=== PATIENT | male | born 1980 | race Caucasian/White ===

== ENCOUNTER 2017-01-26 13:11 | Emergency (ER) | payer OTHER ==
[2017-01-26 13:24] VITALS: BP 118/78
--- NOTE | 2017-01-26 13:41 | UC ---
Lower Extremity/Ankle HPI - HPI Summary HPI Summary: pt presents with sudden onset of pain to right foot/ankle pain s/p inverting right ankle when stepping on toy at home. Pt reports prior history of right ankle injury - History of Current Complaint Chief Complaint: UCLowerExtremity Stated Complaint: RIGHT ANKLE INJURY Time Seen by Provider: 01/26/17 13:24 Hx Obtained From: Patient Onset/Duration: Sudden Onset, Lasting Minutes Severity Initially: Moderate Severity Currently: Moderate Aggravating Factor(s): Standing, Ambulation Alleviating Factor(s): Rest, Elevation Able to Bear Weight: No - Risk Factors Gout Risk Factors: Male - Allergies/Home Medications Allergies/Adverse Reactions: Allergies Allergy/AdvReac Type Severity Reaction Status Date / Time Amoxicillin Allergy Nausea Verified 01/26/17 13:24 Clarithromycin [From Biaxin] Allergy Nausea Verified 01/26/17 13:24 Penicillins Allergy Nausea Verified 01/26/17 13:24 Home Medications: Home Medications Multiple Vitamin [Multi Vitamin] 1 tab PO DAILY 01/26/17 [History Confirmed 07/03] Testosterone GEL (NF) [Androgel (NF)] 50 mg TOPICAL DAILY 01/26/17 [History Confirmed 01/26/17] Vitamin B Complex TAB* [Complex B-100*] 1 tab PO DAILY 01/26/17 [History Confirmed 01/26/17] PMH/Surg Hx/FS Hx/Imm Hx Previously Healthy: Yes - Surgical History Surgical History: Yes Surgery Procedure, Year, and Place: ACL left 1999, cartilage 2007, left hand 2012 - Family History Known Family History: Positive: Other - positive [facility] for myalgia - Social History Alcohol Use: Rare Substance Use Type: None, Prescribed Substance Use Comment - Amount & Last Used: recovering opiate addict Smoking Status (MU): Heavy Every Day Tobacco Smoker Type: Cigarettes, eCigarettes Amount Used/How Often: 1/2 ppd Review of Systems Constitutional: Negative Skin: Negative Eyes: Negative ENT: Negative Respiratory: Negative Cardiovascular: Negative Gastrointestinal: Negative Genitourinary: Negative Motor: Decreased ROM - right ankle/foot secondary to pain Neurovascular: Negative Musculoskeletal: Arthralgia, Decreased ROM - right foot/ankle, Myalgia Neurological: Negative Psychological: Negative All Other Systems Reviewed And Are Negative: Yes Physical Exam Triage Information Reviewed: Yes Appearance: Well-Appearing Vital Signs: Initial Vital Signs Temp 97.9 F 07/12/17 13:13 Pulse 88 01/26/17 13:13 Resp 16 01/26/17 13:13 BP 118/78 01/26/17 13:13 Pulse Ox 98 01/26/17 13:13 Eye Exam: Normal Respiratory Exam: Normal Respiratory: Positive: No respiratory distress Musculoskeletal Exam: Other Musculoskeletal: Positive: ROM Limited @ - right foot/ankle Neurological Exam: Normal Psychological Exam: Normal Skin Exam: Normal Lower Extremity Course/Dx - Differential Dx/Diagnosis Differential Diagnosis/HQI/PQRI: Fracture (Closed), Sprain Provider Diagnoses: right ankle sprain Discharge - Discharge Plan Condition: Stable Disposition: HOME Patient Education Materials: Ankle Sprain (ED) Referrals: Chaka Moran MD [Medical Doctor] - BRYAN Paul [Medical Doctor] -
--- NOTE | 2017-01-26 13:58 | RAD ---
HISTORY: Right ankle injury COMPARISONS: None VIEWS: 3, Frontal, lateral, and oblique views of the right ankle FINDINGS: BONE DENSITY: Normal. BONES: There is no displaced fracture. JOINTS: There is no arthropathy. ALIGNMENT: There is no dislocation. SOFT TISSUES: Unremarkable. OTHER FINDINGS: None. IMPRESSION: NO ACUTE OSSEOUS INJURY. IF SYMPTOMS PERSIST, RECOMMEND REPEAT IMAGING.
== END 2017-01-26 14:23 | disposition home or self-care (01) ==
LOC: UCCORT 13:11
DX: S93.401A Sprain of unspecified ligament of right ankle, initial encounter (principal); X50.0XXA Overexertion from strenuous movement or load, initial encounter; Y92.009 Unspecified place in unspecified non-institutional (private) residence as the place of occurrence of the external cause; F17.290 Nicotine dependence, other tobacco product, uncomplicated
CPT/HCPCS: 99212; G0463

== ENCOUNTER 2017-12-10 13:53 | Emergency (ER) | payer OTHER ==
[2017-12-10 14:35] VITALS: BP 141/71
--- NOTE | 2017-12-10 14:46 | UC ---
UC Dental HPI - HPI Summary HPI Summary: right upper dental pain similar episode a couple of months ago. has been seeing a dentist but now has worsening pain and some swelling - History of Current Complaint Chief Complaint: UCDentalProblem Stated Complaint: ORAL COMPLAINT Time Seen by Provider: 12/10/17 14:30 Hx Obtained From: Patient Onset/Duration: Gradual Onset, Lasting Days, Worse Since - past 2-3 days Pain Intensity: 5 Pain Scale Used: 0-10 Numeric Related History: Previous Dental Care on Same Tooth, Swelling - Allergies/Home Medications Allergies/Adverse Reactions: Allergies Allergy/AdvReac Type Severity Reaction Status Date / Time amoxicillin AdvReac Nausea Verified 12/10/17 14:44 clarithromycin [From Biaxin] AdvReac Nausea Verified 12/10/17 14:44 Penicillins AdvReac Nausea Verified 12/10/17 14:44 PMH/Surg Hx/FS Hx/Imm Hx Previously Healthy: No GI/ History: Gastroesophageal Reflux Psychological History: Depression, Other Other Psychological History: opiate abuse disorder in remission - Surgical History Surgical History: Yes Surgery Procedure, Year, and Place: ACL left 1999, cartilage 2007, left hand 2012 - Family History Known Family History: Positive: Other - positive [facility] for myalgia - Social History Occupation: Unemployed Lives: With Family Alcohol Use: None Substance Use Type: None Substance Use Comment - Amount & Last Used: opiate abuse disorder in remission Smoking Status (MU): Heavy Every Day Tobacco Smoker Type: Cigarettes, eCigarettes Amount Used/How Often: 1/2 ppd Length of Time of Smoking/Using Tobacco: since age 18 Have You Smoked in the Last Year: Yes Review of Systems Constitutional: Negative Skin: Negative Eyes: Negative ENT: Dental Pain - right upper dental pain--molar 2/3 Respiratory: Negative Cardiovascular: Negative Gastrointestinal: Negative Genitourinary: Negative Motor: Negative Neurovascular: Negative Musculoskeletal: Negative Neurological: Negative Psychological: Negative Is Patient Immunocompromised?: No All Other Systems Reviewed And Are Negative: Yes Physical Exam Triage Information Reviewed: Yes Appearance: Well-Appearing, No Pain Distress, Well-Nourished Vital Signs: Initial Vital Signs Temp 98.3 F 12/10/17 14:21 Pulse 69 12/10/17 14:21 Resp 16 12/10/17 14:21 BP 141/71 12/10/17 14:21 Pulse Ox 99 12/10/17 14:21 Vital Signs Reviewed: Yes Eye Exam: Normal Eyes: Positive: Conjunctiva Clear ENT Exam: Normal ENT: Positive: Normal ENT inspection, Hearing grossly normal, Pharynx normal, Uvula midline. Negative: Nasal drainage, Tonsillar exudate, Trismus, Muffled voice, Hoarse voice, Sinus tenderness Dental Exam: Other Dental: Positive: Percussion Tenderness @, Gross Decay/Caries @, Abscess @ Neck exam: Normal Neck: Positive: Supple, Nontender, No Lymphadenopathy Respiratory Exam: Normal Respiratory: Positive: Chest non-tender, No respiratory distress, No accessory muscle use Cardiovascular Exam: Normal Cardiovascular: Positive: RRR, Pulses Normal, Brisk Capillary Refill Musculoskeletal Exam: Normal Musculoskeletal: Positive: Strength Intact, ROM Intact, No Edema Neurological Exam: Normal Neurological: Positive: Alert, Muscle Tone Normal Psychological Exam: Normal Skin Exam: Normal Dental Complaint Course/Dx - Course Course Of Treatment: ibuprofen, clindamycin, probiotics, follow with dentist ARM[facility] - Differential Dx/Diagnosis Provider Diagnoses: right upper dental pain with decay Discharge - Sign-Out/Discharge Documenting (check all that apply): Discharge/Admit/Transfer - Discharge Plan Condition: Stable Disposition: HOME Prescriptions: Clindamycin Cap(NF) [Clindamycin Cap 300 mg Cap(NF)] 300 mg PO TID #30 cap Ibuprofen TAB* [Motrin TAB* 800 MG] 800 mg PO Q8H #40 tab Patient Education Materials: Dental Abscess (ED), Hypertension (ED), Toothache (ED) Referrals: Russell Francois MD [Primary Care Provider] - 2 Days Additional Instructions: Follow with dentist as soon as possible - Billing Disposition and Condition Condition: STABLE Disposition: HOME
== END 2017-12-10 14:54 | disposition home or self-care (01) ==
LOC: UCCORT 13:53
DX: K02.9 Dental caries, unspecified (principal); Z88.1 Allergy status to other antibiotic agents; Z88.0 Allergy status to penicillin; F17.210 Nicotine dependence, cigarettes, uncomplicated
CPT/HCPCS: 99212; G0463

== ENCOUNTER 2018-01-23 19:54 | Emergency (ER) | payer OTHER ==
[2018-01-23 20:35] VITALS: BP 131/87
[2018-01-23] MEDS ORDERED: metroNIDAZOLE TAB* 250 MG PO ONE (20:57)
[2018-01-23] MEDS ORDERED: DOXYcycline CAP(*) 100 MG PO ONE (20:57)
--- NOTE | 2018-01-23 21:02 | UC ---
Dental HPI - HPI Summary HPI Summary: had tooth extracted 3 days ago (tooth #1) has sutures placed--rx with clindamycin which has been causing the patient nausea vomiting and stomach burning - History of Current Complaint Chief Complaint: UCDentalProblem Stated Complaint: DENTAL COMPLAINT Time Seen by Provider: 01/23/18 20:40 Hx Obtained From: Patient Onset/Duration: Sudden Onset, Lasting Days - 3 Pain Intensity: 5 Pain Scale Used: 0-10 Numeric Aggravating Factor(s): Nothing Alleviating Factor(s): Nothing Related History: Previous Dental Care on Same Tooth - Allergies/Home Medications Allergies/Adverse Reactions: Allergies Allergy/AdvReac Type Severity Reaction Status Date / Time amoxicillin AdvReac Nausea Verified 01/23/18 20:23 clarithromycin [From Biaxin] AdvReac Nausea Verified 01/23/18 20:23 clindamycin AdvReac Vomiting Verified 01/23/18 20:23 Penicillins AdvReac Nausea Verified 01/23/18 20:23 Home Medications: Home Medications Al Hydrox/Mg Hydrox/Livan BULK* [Mylanta - BULK BOT*] 1 wen PO BID PRN 01/23/18 [ History Confirmed 01/23/18] PMH/Surg Hx/FS Hx/Imm Hx Previously Healthy: No - opiate abuse disorder in remission GI/ History: Gastroesophageal Reflux Psychological History: Depression Other History Of: Hepatitis C - Surgical History Surgical History: Yes Surgery Procedure, Year, and Place: ACL left 1999, cartilage 2007, left hand 2012 - Family History Known Family History: Positive: Other - positive [facility] for myalgia - Social History Occupation: Student Lives: With Family Alcohol Use: None Substance Use Type: None Substance Use Comment - Amount & Last Used: opiate abuse disorder in remission Smoking Status (MU): Heavy Every Day Tobacco Smoker Type: Cigarettes, eCigarettes, Smokeless Tobacco Amount Used/How Often: 1/2 ppd Length of Time of Smoking/Using Tobacco: since age 18 Have You Smoked in the Last Year: Yes Review of Systems Constitutional: Negative Skin: Negative Eyes: Negative ENT: Negative Respiratory: Negative Cardiovascular: Negative Gastrointestinal: Abdominal Pain, Vomiting, Nausea Genitourinary: Negative Motor: Negative Neurovascular: Negative Musculoskeletal: Negative Neurological: Negative Psychological: Negative Is Patient Immunocompromised?: No All Other Systems Reviewed And Are Negative: Yes Physical Exam Triage Information Reviewed: Yes Appearance: Well-Appearing, No Pain Distress, Well-Nourished Vital Signs: Initial Vital Signs Temp 98.8 F 01/23/18 20:26 Pulse 73 01/23/18 20:26 Resp 16 01/23/18 20:26 BP 131/87 01/23/18 20:26 Pulse Ox 100 01/23/18 20:26 Vital Signs Reviewed: Yes Eye Exam: Normal Eyes: Positive: Conjunctiva Clear ENT Exam: Normal ENT: Positive: Normal ENT inspection, Pharynx normal, Dental tenderness - right upper gum, Uvula midline. Negative: Trismus, Muffled voice, Hoarse voice, Sinus tenderness Dental Exam: Other Dental: Positive: Other: - extraction site of number 1 tooth--sutures intact-no swelling or drainage Neck exam: Normal Neck: Positive: Supple, Nontender, No Lymphadenopathy Respiratory Exam: Normal Respiratory: Positive: Chest non-tender, Lungs clear, Normal breath sounds, No respiratory distress, No accessory muscle use Cardiovascular Exam: Normal Cardiovascular: Positive: RRR, No Murmur, Pulses Normal, Brisk Capillary Refill Musculoskeletal Exam: Normal Musculoskeletal: Positive: Strength Intact, ROM Intact, No Edema Neurological Exam: Normal Neurological: Positive: Alert, Muscle Tone Normal Psychological Exam: Normal Skin Exam: Normal Dental Complaint Course/Dx - Course Course Of Treatment: stop clindamycin, use flagyl and doxycycline, follow with dentist or Dr. Francois if you are intolerant to medication - Differential Dx/Diagnosis Provider Diagnoses: dental extraction, medication intolerance Discharge - Sign-Out/Discharge Documenting (check all that apply): Discharge/Admit/Transfer - Discharge Plan Condition: Stable Disposition: HOME Prescriptions: DOXYcycline CAP(*) [DOXYcycline 100MG CAP(*)] 100 mg PO BID #14 cap metroNIDAZOLE [Flagyl 500 MG TAB] 500 mg PO TID #21 tab Patient Education Materials: Dental Abscess (ED) Referrals: Russell Francois MD [Primary Care Provider] - If Needed - Billing Disposition and Condition Condition: STABLE Disposition: Home
== END 2018-01-23 21:10 | disposition home or self-care (01) ==
LOC: UCCORT 19:54
DX: T36.8X5A Adverse effect of other systemic antibiotics, initial encounter (principal); R11.2 Nausea with vomiting, unspecified; R19.8 Other specified symptoms and signs involving the digestive system and abdomen; B19.20 Unspecified viral hepatitis C without hepatic coma; K21.9 Gastro-esophageal reflux disease without esophagitis; Z79.899 Other long term (current) drug therapy; F17.290 Nicotine dependence, other tobacco product, uncomplicated; F17.210 Nicotine dependence, cigarettes, uncomplicated; Z88.0 Allergy status to penicillin; Z88.1 Allergy status to other antibiotic agents; Z98.890 Other specified postprocedural states; Y92.9 Unspecified place or not applicable
CPT/HCPCS: 99213; A9270-GY; G0463

== ENCOUNTER 2018-02-10 10:26 | Emergency (ER) | payer OTHER ==
[2018-02-10 10:53] VITALS: BP 108/68
--- NOTE | 2018-02-10 11:11 | UC ---
UC General HPI - HPI Summary HPI Summary: Pt accompanied by sister. Pt c/o generalized, malaise, fatigue, fever, chills and episodes of "fever induced hallucinations" that are intermittent beginning on 02/06 or . Pt does not have a thermometer at home but states he was "burning up" and "hallucinating" according to pt's sister. Pt reports that he just "does not feel right" and is fatigued and "sleeping all the time". Also, states that he was recently treated for dental abscess and after taking antibiotics he developed bilateral hand numbness. Denies, cough, ST, ear ache, nausea, vomiting, dysuria, MCKENZIE, nasal congestion, sinus pressure or pain, or diarrhea - History of Current Complaint Chief Complaint: UCRespiratory Stated Complaint: FEVERISH,ACHY Time Seen by Provider: 02/10/18 10:47 Hx Obtained From: Patient Onset/Duration: Sudden Onset, Lasting Days, Still Present Timing: Intermittent Episodes Lasting: Onset Severity: Severe Current Severity: None Pain Intensity: 0 Associated Signs & Symptoms: Positive: Confusion, Fever - Allergy/Home Medications Allergies/Adverse Reactions: Allergies Allergy/AdvReac Type Severity Reaction Status Date / Time acetaminophen [From Tylenol] Allergy Hives Verified 02/10/18 10:44 amoxicillin AdvReac Nausea Verified 02/10/18 10:44 clarithromycin [From Biaxin] AdvReac Nausea Verified 02/10/18 10:44 clindamycin AdvReac Vomiting Verified 02/10/18 10:44 Penicillins AdvReac Nausea Verified 02/10/18 10:44 Home Medications: Home Medications PARoxetine HCL TAB* [Paxil TAB*] 40 mg DAILY 02/10/18 [History Confirmed ] PMH/Surg Hx/FS Hx/Imm Hx Previously Healthy: Yes Psychological History: Other - recovering addict, IV drugs, cocaine, Other Psychological History: IV drug user, cocaine addiction Other History Of: Hepatitis C - Surgical History Surgical History: Yes Surgery Procedure, Year, and Place: ACL left 1999, cartilage 2007, left hand 2012 - Family History Known Family History: Positive: Other - positive [facility] for myalgia - Social History Occupation: Unemployed Lives: With Family Alcohol Use: None Substance Use Type: Cocaine, Heroin, Prescribed, Other - denies current use Substance Use Comment - Amount & Last Used: opiate abuse disorder in remission Smoking Status (MU): Heavy Every Day Tobacco Smoker Type: Cigarettes, eCigarettes, Smokeless Tobacco Amount Used/How Often: 1/2 ppd Length of Time of Smoking/Using Tobacco: since age 18 Have You Smoked in the Last Year: Yes Review of Systems Constitutional: Fever, Chills, Fatigue Skin: Negative Eyes: Negative ENT: Negative Respiratory: Negative Cardiovascular: Negative Gastrointestinal: Negative Genitourinary: Negative Motor: Weakness Neurovascular: Negative Musculoskeletal: Myalgia Neurological: Weakness, Paresthesia Psychological: Negative Is Patient Immunocompromised?: No All Other Systems Reviewed And Are Negative: Yes Physical Exam Triage Information Reviewed: Yes Appearance: Well-Appearing Vital Signs: Initial Vital Signs Temp 98.4 F 02/10/18 10:46 Pulse 64 02/10/18 10:46 Resp 15 02/10/18 10:46 BP 108/68 02/10/18 10:46 Pulse Ox 98 02/10/18 10:46 Vital Signs Reviewed: Yes Eye Exam: Normal Eyes: Positive: Other: - PERRLA ENT Exam: Normal ENT: Positive: Hearing grossly normal Dental Exam: Normal Neck exam: Normal Respiratory Exam: Normal Respiratory: Positive: Respiratory distress Abdominal Exam: Normal Abdomen Description: Positive: Nontender Musculoskeletal Exam: Normal Musculoskeletal: Positive: Strength Intact, ROM Intact Neurological Exam: Normal Neurological: Positive: Alert, Muscle Tone Normal, Other: - able to differentiate soft na dsharp testing bilateral hands and tips of bilateral fingers Psychological Exam: Normal Skin Exam: Normal, Other - "old track braun" per pt bilateral upper arm antecubital areas. Non tender, soft, moveable Mass left medial antecubital space. Course/Dx - Course Course Of Treatment: I discussed with the pt the need for further testing and evaluation. Pt verbalized understanding and agreed to plan of care. - Differential Dx - Multi-Symptom Differential Diagnoses: Other - viral syndrome Provider Diagnoses: viral syndrome Discharge - Sign-Out/Discharge Documenting (check all that apply): Patient Departure - Discharge Plan Condition: Stable Disposition: HOME-RECOMMEND TO ED Patient Education Materials: Fever in Adults (ED), Fatigue (ED) Referrals: Russell Francois MD [Primary Care Provider] - If Needed Additional Instructions: It is recommended that you follow up at the closest emergency room for further evaluation,testing and treatment as soon as possible. Per institutional requirements, I have reviewed the chart, however, I was not consulted specifically or made aware of this patient by the above midlevel provider. I did not personally evaluate, interact with , or disposition this patient. - Billing Disposition and Condition Condition: STABLE Disposition: Home-Recommend to ED
== END 2018-02-10 11:18 | disposition home health service (06) ==
LOC: UCCORT 10:26
DX: B34.9 Viral infection, unspecified (principal); Z88.0 Allergy status to penicillin; Z88.1 Allergy status to other antibiotic agents; Z88.6 Allergy status to analgesic agent; F17.290 Nicotine dependence, other tobacco product, uncomplicated
CPT/HCPCS: 99212; G0463

== ENCOUNTER 2019-05-13 14:32 | Emergency (ER) | payer OTHER ==
[2019-05-13 14:53] VITALS: BP 136/90
--- NOTE | 2019-05-13 15:17 | UC ---
Respiratory Complaint HPI - HPI Summary HPI Summary: Pt presents with c/o cough, chest tightness and wheezing X 2 days. Pt was seen in [facility] ER for allergic reaction and was given benadryl and prednisone upon discharge. Pt has INH and has been taking mediations as prescribed with improvement in symptoms until just 2 days ago. Pt has a hx of asthma - History of Current Complaint Chief Complaint: UCRespiratory Stated Complaint: WHEEZY/ HX OF ASHTMA Time Seen by Provider: 05/13/19 15:05 Hx Obtained From: Patient Onset/Duration: Gradual Onset, Lasting Days, Still Present Timing: Constant Severity Initially: Mild Severity Currently: Mild Pain Intensity: 0 Character: Cough: Nonproductive Aggravating Factors: Exertion, Deep Breaths, Recumbent Position Alleviating Factors: Nothing Associated Signs And Symptoms: Positive: Wheezing - Risk Factors Pulmonary Embolism Risk Factors: Smoking Cardiac Risk Factors: Smoking Tuberculosis Risk Factors: Smoking - Allergies/Home Medications Allergies/Adverse Reactions: Allergies Allergy/AdvReac Type Severity Reaction Status Date / Time acetaminophen [From Tylenol] Allergy Hives Verified 05/13/19 14:44 amoxicillin AdvReac Nausea Verified 05/13/19 14:44 clarithromycin [From Biaxin] AdvReac Nausea Verified 05/13/19 14:44 clindamycin AdvReac Vomiting Verified 05/13/19 14:44 Penicillins AdvReac Nausea Verified 05/13/19 14:44 Home Medications: Home Medications Famotidine TAB* [Pepcid 20 MG TAB*] 1 tab DAILY 05/13/19 [History Confirmed ] diPHENhydraMINE PO* [Benadryl PO 25 MG TAB*] 1 tab TID 05/13/19 [History Confirmed 05/13/19] PMH/Surg Hx/FS Hx/Imm Hx Previously Healthy: Yes Other History Of: Hepatitis C - Surgical History Surgical History: Yes Surgery Procedure, Year, and Place: ACL left 1999, cartilage 2007, left hand 2012 - Family History Known Family History: Positive: Other - positive [facility] for myalgia - Social History Occupation: Unemployed Lives: With Family Alcohol Use: Rare Substance Use Type: Other Substance Use Comment - Amount & Last Used: opiate abuse disorder in remission Smoking Status (MU): Heavy Every Day Tobacco Smoker Type: Cigarettes, eCigarettes, Smokeless Tobacco Amount Used/How Often: 1/2 ppd Length of Time of Smoking/Using Tobacco: since age 18 Have You Smoked in the Last Year: Yes Review of Systems All Other Systems Reviewed And Are Negative: Yes Constitutional: Positive: Negative Skin: Positive: Other - previous track braun. Pt states that he has not used recently. However, there are multiple track braun in various stages of healing on bilateral upper extremities. Eyes: Positive: Negative ENT: Positive: Negative Respiratory: Positive: Cough, Other - wheezing Cardiovascular: Positive: Negative Gastrointestinal: Positive: Negative Genitourinary: Positive: Negative Motor: Positive: Negative Neurovascular: Positive: Negative Musculoskeletal: Positive: Negative Neurological: Positive: Negative Psychological: Positive: Negative Is Patient Immunocompromised?: No Physical Exam Triage Information Reviewed: Yes Appearance: Well-Appearing Vital Signs: Initial Vital Signs Temp 98.9 F 05/13/19 14:46 Pulse 118 05/13/19 14:46 Resp 16 05/13/19 14:46 BP 136/90 05/13/19 14:46 Pulse Ox 96 05/13/19 14:46 Vital Signs Reviewed: Yes Eye Exam: Normal ENT: Positive: Nasal congestion Neck exam: Normal Respiratory: Positive: Wheezing Cardiovascular Exam: Normal Cardiovascular: Positive: Tachycardia Musculoskeletal Exam: Normal Neurological Exam: Normal Psychological Exam: Normal Skin Exam: Other - previous track braun. Pt states that he has not used recently. However, there are multiple track braun in various stages of healing on bilateral upper extremities.Palpable scarred veins bilateral upper extremities Respiratory Course/Dx - Course Course Of Treatment: Pt stated that he had an appointment with PCP on 05/15. Pt was told to keep that appointment and was given recommendations to an asthma and home health care coordinator specialist. - Differential Dx/Diagnosis Differential Diagnosis/HQI/PQRI: Exacerbation Of COPD Provider Diagnosis: Wheezing, Cough Discharge ED - Sign-Out/Discharge Documenting (check all that apply): Patient Departure All imaging exams completed and their final reports reviewed: No Studies - Discharge Plan Condition: Stable Disposition: HOME Prescriptions: Albuterol 2.5MG/3ML (0.083%)* [Ventolin 2.5 MG/3 ML NEB.TIMBO*] 2.5 mg INH Q4H PRN #1 neb.timbo PRN Reason: Sob/Wheezing Albuterol HFA INHALER* [Ventolin HFA Inhaler*] 1 - 2 puff INH Q4H PRN #1 mdi PRN Reason: Sob/Wheezing Montelukast Sodium TAB* [Singulair 10 MG TAB*] 1 tab PO QPM #20 tab predniSONE TAB* [Deltasone 20 MG TAB*] 60 mg PO DAILY #12 tab Patient Education Materials: Reactive Airways Disease (ED), Wheezing (ED) Referrals: Molina Resendez MD [Primary Care Provider] - 05/15/19 Tracy Senior MD [Medical Doctor] - As Soon As Possible Cornel Luevano MD [Medical Doctor] - As Soon As Possible Hans Hubbard MD [Medical Doctor] - As Soon As Possible Additional Instructions: Please keep your appointment for your PCP as scheduled. We provided several asthma and allergy specialists for you to establish care with as soon as possible. If your symptoms please seek care at the closest emergency room as soon as possible. - Billing Disposition and Condition Condition: STABLE Disposition: Home
== END 2019-05-13 15:32 | disposition home or self-care (01) ==
LOC: UCCORT 14:32
DX: R05 Cough (principal); R06.2 Wheezing; F17.210 Nicotine dependence, cigarettes, uncomplicated; Z88.1 Allergy status to other antibiotic agents; Z88.0 Allergy status to penicillin; Z88.8 Allergy status to other drugs, medicaments and biological substances
CPT/HCPCS: 99212; G0463